=== PATIENT | male | born 1965 | race Native Hawaiian/Other Pacific Islander ===

== ENCOUNTER 2019-10-22 19:47 | Emergency (ER) | payer OTHER ==
[~2019-10-22] VITALS: Ht 180.3 cm; Wt 137.4 kg
[2019-10-22 21:09] LABS: PLATELET COUNT 148 K/uL (142-355)
[2019-10-22 21:23] LABS: POTASSIUM 3.8 mmol/L (3.6-5.2); SODIUM 136 mmol/L (136-145)
[2019-10-22 22:36] LABS: PARTIAL THROMBOPLASTIN TIME 23.9 SECONDS (24.5-33.6)
[2019-10-22 23:05] VITALS: BP 138/87; TEMP 97.7
== END 2019-10-22 23:05 | disposition short-term general hospital (02) ==
LOC: ED 19:47
PROVIDERS: Emergency Medicine
DX: I63.89 Other cerebral infarction (principal); I48.91 Unspecified atrial fibrillation; E11.9 Type 2 diabetes mellitus without complications
CPT/HCPCS: 80053; 81000; 83735; 84484; 85027; 85610; 85730; 93005; 99283

== ENCOUNTER 2019-10-22 23:10 | Outpatient (CLI) | payer OTHER | END 2019-10-23 00:17 | disposition short-term general hospital (02) | LOC: AMB 23:10 | DX: I63.89 Other cerebral infarction (principal); R51 Headache; R47.81 Slurred speech | CPT/HCPCS: A0425; A0429 ==